=== PATIENT | female | born 1955 | race Caucasian/White ===

== ENCOUNTER 2020-03-01 18:23 | Observation (INO) | payer BC, MEDICARE ==
[~2020-03-01] VITALS: Ht 165.1 cm; Wt 85.7 kg
[~2020-03-01 18:23] MED LIST: ASPI-630 PO; CELE100C PO; CITA20TA6 PO; CLOP75TA57 PO; LOSA100T14 PO; SIMV40TA18 PO
[2020-03-01] MEDS ORDERED: ASPIRIN CHEWABLE 81 MG TABLET. PO ONE (18:30)
[2020-03-01 18:51] LABS: BASO # 0.1 x10^3/uL (0.0-0.2); BASO % 1 % (0-3); EOS # 0.2 x10^3/uL (0.0-0.7); EOS % 2 % (0-3); HEMOGLOBIN 15.8 g/dL (12.0-15.5); LYMPH # 3.2 x10^3/uL (1.0-4.8); LYMPH % 37 % (24-48); MEAN CORPUSCULAR HEMOGLOBIN 29 pg (25-35); MEAN CORPUSCULAR HGB CONC 33 g/dL (31-37); MEAN CORPUSCULAR VOLUME 88 fL (79-100); MONO # 0.8 x10^3/uL (0.0-1.1); MONO % 9 % (0-9); NEUT # 4.4 x10^3uL (1.8-7.7); NEUT % 51 % (31-73); PLATELET COUNT 261 x10^3/uL (140-400); RED BLOOD COUNT 5.44 x10^6/uL (3.50-5.40); RED CELL DISTRIBUTION WIDTH 14.7 % (11.5-14.5); WHITE BLOOD COUNT 8.7 x10^3/uL (4.0-11.0)
--- NOTE | 2020-03-01 18:53 | PHYS DOC ---
Past History Past Medical History: Depression, Hypertension, AL Past Surgical History: No Surgical History Alcohol Use: None Drug Use: None General Adult EDM: Chief Complaint: CHEST PAIN HPI: HPI: 64-year-old female presents with chest pain. The patient's pain started about 30 minutes prior to arrival. She describes it as a heavy pressure sensation. It was a 8 out of 10. It has improved to a 4 out of 10 at this time. The patient has had a heart attack in the past. She had 2 stents placed about 10 years ago. She has had regular follow-up. Her last stress test was 3 years ago. She is scheduled for another 1 in 9 months. She has had no further complications. 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 She was not exerting herself. She was not diaphoretic or short of breath. She denies any other symptoms or complaints at this time. Review of Systems: Review of Systems: Constitutional: Denies fever or chills Eyes: Denies change in visual acuity HENT: Denies nasal congestion or sore throat Respiratory: Denies cough or shortness of breath Cardiovascular: Chest pain GI: Denies abdominal pain, nausea, vomiting, bloody stools or diarrhea : Denies dysuria Musculoskeletal: Denies back pain or joint pain Integument: Denies rash Neurologic: Denies headache, focal weakness or sensory changes Endocrine: Denies polyuria or polydipsia Lymphatic: Denies swollen glands Psychiatric: Denies depression or anxiety Heart Score: HEART Score for Chest Pain: HEART Score for Chest Pain Response (Comments) Value History Slighlty/Non-Suspicious 0 ECG Normal 0 Age > 65 2 Risk Factors >3 Risk Factors or Hx CAD 2 Troponin < Normal Limit 0 Total 4 Risk Factors: Risk Factors: DM, Current or recent (<one month) smoker, HTN, HLP, family history of CAD, obesity. Risk Scores: Score 0 - 3: 2.5% MACE over next 6 weeks - Discharge Home Score 4 - 6: 20.3% MACE over next 6 weeks - Admit for Clinical Observation Score 7 - 10: 72.7% MACE over next 6 weeks - Early Invasive Strategies Current Medications: Current Meds: Current Medications Medications (Trade) Dose Ordered Sig/Ben Start Time Stop Time Status Last Admin Dose Admin Aspirin (Aspirin Chewable) 324 mg 1X ONCE 03/01/20 18:30 03/01/20 18:31 DC Allergies: Allergies: Allergies Coded Allergies Type Severity Reaction Last Updated Verified iodine Allergy Intermediate 03/05/15 Yes Physical Exam: PE: Constitutional: Well developed, well nourished, no acute distress, non-toxic appearance. [] HENT: Normocephalic, atraumatic, bilateral external ears normal, oropharynx moist, no oral exudates, nose normal. [] Eyes: PERRLA, EOMI, conjunctiva normal, no discharge. [] Neck: Normal range of motion, no tenderness, supple, no stridor. [] Cardiovascular: Heart rate regular rhythm, no murmur [] Lungs & Thorax: Bilateral breath sounds clear to auscultation [] Abdomen: Bowel sounds normal, soft, no tenderness, no masses, no pulsatile masses. [] Skin: Warm, dry, no erythema, no rash. [] Back: No tenderness, no CVA tenderness. [] Extremities: No tenderness, no cyanosis, no clubbing, ROM intact, no edema. [] Neurologic: Alert and oriented X 3, normal motor function, normal sensory function, no focal deficits noted. [] Psychologic: Affect normal, judgement normal, mood concerned. [] Current Patient Data: Vital Signs: Vital Signs Date Time Temp Pulse Resp B/P (MAP) Pulse Ox O2 Delivery O2 Flow Rate FiO2 03/01/20 18:41 98.2 86 16 131/78 (95) 98 Room Air EKG: EKG: Sinus rhythm, rate 91, leftward axis, no ST elevation or depression. [] Radiology/Procedures: Radiology/Procedures: [] Impressions: Single view chest dated 03/01/2020: Comparison made to 03/04/2015 Clinical Indication: Chest pain. Findings: Single upright portable exam of the chest was performed. Heart size and mediastinal contours are within normal limits given technique. The lungs are clear without evidence of focal consolidation. No pleural effusion or pneumothorax. Impression:: No acute radiographic abnormality. Electronically signed by: Darin Resnediz MD (03/01/2020 6:59 PM) [facility] [place] DICTATED AND SIGNED BY: DARIN RESENDIZ MD DATE: 03/01/20 1858 CC: KWESI FRYE DO; PCP,NO ~ Course & Med Decision Making: Course & Med Decision Making Pertinent Labs and Imaging studies reviewed. (See chart for details) Patient's EKG is unremarkable. Her troponin is negative. Her labs are significant for what appears to be some hemoconcentration. Her BUN and creatinine are also a bit elevated. I believe the patient is a bit dehydrated. We will give her a liter of normal saline. Given her significant cardiac history, I believe the patient should be admitted for further trending and observation. I spoke with Dr. Verdugo about the patient and he has agreed to admit her for troponin trending and further management as needed. [] Dragon Disclaimer: Dragon Disclaimer: This electronic medical record was generated, in whole or in part, using a voice recognition dictation system. Departure Departure: Impression: Primary Impression: Chest pain Qualified Codes: R07.9 - Chest pain, unspecified Disposition: ADMITTED INPATIENT Admitting Physician: Elbert Verdugo Condition: STABLE Referrals: PCP,MYKE (PCP) KWESI FRYE DO March 01, 2020 18:53
[2020-03-01 19:00] LABS: CALCIUM 9.8 mg/dL (8.5-10.1); CREATININE 0.8 mg/dL (0.6-1.0); GFR 71.8; POTASSIUM 3.6 mmol/L (3.5-5.1)
--- NOTE | 2020-03-01 19:02 | RAD ---
Single view chest dated 03/01/2020: Comparison made to 03/04/2015 Clinical Indication: Chest pain. Findings: Single upright portable exam of the chest was performed. Heart size and mediastinal contours are within normal limits given technique. The lungs are clear without evidence of focal consolidation. No pleural effusion or pneumothorax. Impression:: No acute radiographic abnormality. Electronically signed by: Darin Resendiz MD (03/01/2020 6:59 PM) [facility]
[2020-03-01 19:12] LABS: ALBUMIN 4.2 g/dL (3.4-5.0); TOTAL BILIRUBIN 0.4 mg/dL (0.2-1.0); TOTAL PROTEIN 8.3 g/dL (6.4-8.2)
[2020-03-01] MEDS ORDERED: IV NORMAL SALINE 1,000ML 1,000 ML IV ONE (19:30)
[2020-03-01 21:18] VITALS: BP 123/80
--- NOTE | 2020-03-01 22:51 | NUR ---
The patient, SANDRA ARAYA, 64 y/o, F admitted by HOMER TITUS MD, was given written information regarding hospital policies, unit procedures and contact persons. Valuables were checked and left with the patient. Medical history, medication use discussed. Physical and social needs assessed. Patient states pain level is 0/10. Will continue to monitor.
[2020-03-02] MEDS ORDERED: MELO15TA23 (05:23)
[2020-03-02] MEDS ORDERED: IRBE300T23 (05:23)
[2020-03-02] MEDS ORDERED: LOSA100T2 PO (05:25)
[2020-03-02] MEDS ORDERED: ACET500T68 PO (05:26)
[2020-03-02 05:54] VITALS: BP 127/79
--- NOTE | 2020-03-02 09:02 | HP ---
ADMIT DATE: 03/01/2020 ATTENDING PHYSICIAN: Dr. Titus. CHIEF COMPLAINT: Chest pain. HISTORY OF PRESENT ILLNESS: The patient is a very pleasant 64-year-old female with a known history of coronary artery disease. She has 2 previous stents. She presented to the ED with 30 minutes prior to arrival of nonexertional pressure, severe, 8/10. There was an anxiety component that had improved. She has had a previous heart attack. 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 In the ED, the first set of cardiac enzymes was negative. EKG was nondiagnostic. Chest x-ray was clear. She was not into failure. No infectious symptoms. She was admitted for further treatment, evaluation, observation and serial enzymes. PAST MEDICAL HISTORY: Significant for depression, hypertension, coronary artery disease, and 2 previous stents. CURRENT MEDICINES: Reviewed. She takes aspirin. She was taking Mobic. She takes Celebrex, Plavix, irbesartan, meloxicam and Zocor. ALLERGIES: SHE HAS ALLERGIES TO IODINE. SOCIAL HISTORY: She was a smoker up to several years ago. No alcohol use, lots of caffeine though. FAMILY HISTORY: Noncontributory. REVIEW OF SYSTEMS: Significant for the localized chest pressure, the nonsteroidal use, some degenerative arthritis. Her depression has been stable but she is alert. She has no trouble sleeping. Appetite has been fair. All other systems reviewed and turned to be negative. PHYSICAL EXAMINATION: GENERAL: When I saw her, this is a pleasant, middle-aged female. INITIAL VITAL SIGNS: Showed a blood pressure of 127/79, pulse is 67 and regular, temperature at 97.5 degrees Fahrenheit, oxygen saturation 95% on room air. HEENT: Head is without trauma. Pupils are reactive. Sclerae are nonicteric. Oropharynx is clear. NECK: Supple, no bruits identified. LUNGS: Otherwise clear. CARDIOVASCULAR: Showed regular heart tones. No gallops. Peripheral pulses palpable and full. ABDOMEN: Soft, nontender, no guarding. EXTREMITIES: Showed no cyanosis or edema. NEUROLOGIC: Focally intact. SKIN: Warm and dry without any lesions. PERTINENT LABORATORY STUDIES: Cardiac enzymes were negative for myocardial necrosis, first set. The hemoglobin is maintained at 15.8 g/dL with a white count of 8700. Electrolytes, normal BUN and creatinine and electrolytes. ASSESSMENT: 1. A 64-year-old female with atypical chest pain, noncardiac in nature, most likely related to her Mobic use. 2. History of coronary artery disease. No evidence of coronary ischemia. 3. Hypertension. 4. Depression. PLAN: 1. Observation status. 2. Serial enzymes. 3. Diet as tolerated. 4. Stop Mobic. HOMER TITUS MD DR: MARCI/marj JOB#: [id number] / [id number]
--- NOTE | 2020-03-02 09:41 | DS ---
DATE OF DISCHARGE: 03/02/2020 ATTENDING PHYSICIAN: Dr. Titus. FINAL DISCHARGE DIAGNOSES: 1. Atypical chest pain, noncardiac. 2. Gastroesophageal reflux disease. 3. Probable NSAID gastritis. 4. Known coronary artery disease with previous stents. 5. Essential hypertension. 6. Underlying depression, stable. HISTORY OF PRESENT ILLNESS: This is a very pleasant 64-year-old female who presented to the ED with chest pressure and pain 8/10, some anxiety component. She has a known history of coronary artery disease. She was admitted for observation and serial cardiac enzymes. PHYSICAL EXAMINATION: Please see my dictated note. PERTINENT LABORATORY AND X-RAY STUDIES: Three sets of cardiac enzymes throughout this hospitalization were all negative. Electrolytes within normal range. CBC showed a normal hemoglobin and white count. EKG was nondiagnostic and chest x-ray was clear. COURSE IN THE HOSPITAL: The patient was admitted and 3 sets of cardiac enzymes drawn 6 hours apart showed no evidence of coronary necrosis. Her pain subsided. Diet was advanced and she was stable. At this time, I reassured her there is no evidence of coronary ischemia. I believe her chest pains are due to her Mobic use and I recommended stopping this altogether. On the second hospital day, her vital signs were stable. She was afebrile. Lungs were clear. Heart rate was regular. She was ready for discharge. She will go home on all her meds unchanged except stopping the Mobic. She will continue her aspirin, Plavix, Lipitor, and irbesartan. 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 The patient was then discharged from our hospital in stable condition with explicit instructions and followup care. HOMER TITUS MD DR: MARCI/marj JOB#: [id number] / [id number]
--- NOTE | 2020-03-04 07:09 | EKG ---
[address] [address] Test Date: 2020-03-01 Test Time: 18:25:51 Pat Name: SANDRA ARAYA Department: Room: 115 A Gender: [employer]: : 1955 Requested By: KWESI FRYE Order Number: [id number] Reading MD: Chance Sood MD Measurements Intervals Combs Rate: P: WI: QRS: QRSD: T: QT: QTc: Interpretive Statements SR LAD 1ST DEGREE AVB Electronically Signed On 03-04-2020 9:14:09 CDT by Chance Sood MD
== END 2020-03-02 09:35 | disposition home or self-care (01) ==
LOC: ER 18:23 → 1 SOUTH 19:40
PROVIDERS: ADMIT Hospitalist; ATTEND Hospitalist
DX: R07.89 Other chest pain (principal); I25.10 Atherosclerotic heart disease of native coronary artery without angina pectoris; I10 Essential (primary) hypertension; F32.9 Major depressive disorder, single episode, unspecified; K29.70 Gastritis, unspecified, without bleeding; K21.9 Gastro-esophageal reflux disease without esophagitis; I25.2 Old myocardial infarction; F41.9 Anxiety disorder, unspecified; Z79.82 Long term (current) use of aspirin; Z87.891 Personal history of nicotine dependence; Z95.5 Presence of coronary angioplasty implant and graft
CPT/HCPCS: 36415; 71045; 80053; 83880; 84484; 85025; 93005; 99284; G0378; G0379; 99285-25; J7030